=== PATIENT | male | born 1990 | race Two or more races ===

== ENCOUNTER 2016-07-06 01:17 | Emergency (ER) | payer SELFPAY ==
[~2016-07-06] VITALS: Ht 180.3 cm; Wt 111.3 kg
[~2016-07-06 01:17] MED LIST: ATARAX,VISTARIL50 MG PO; CLOZARIL25 MG PO; DESYREL 150 MG150 MG PO; DESYREL100 MG PO; HALDOL2 MG PO; INVEGA SUS234 MG/1.5 IM; INVEGA1.5 MG PO; LATUDA40 MG PO; NAPROSYN500 MG PO; NOHOMEMEDS; PERCOCET 7.51 TABLET PO; QUETIAPINE FUM300 MG PO; SEROQUEL100 MG PO; SEROQUEL200 MG PO; SEROQUEL50 MG PO; ZOLPIDEM TARTRA10 MG PO
[2016-07-06] MEDS ORDERED: COGENTIN0.5 MG PO (01:45)
[2016-07-06 02:22] LABS: EOSINOPHIL (%) 2.6 % (0-5); EOSINOPHIL COUNT 0.2 K/uL (0-0.3); HEMATOCRIT 42.9 % (38.0-50.0); IMMATURE GRANULOCYTE (%) 0.4 % (0.0-0.7); IMMATURE GRANULOCYTE COUNT 0.3 K/uL; LYMPHOCYTE COUNT 1.7 K/uL (1.0-2.8); MCH 27.7 PG (29.0-34.0); MCHC 34.5 G/DL (30.0-36.0); MCV 80.2 FL (86-99); MEAN PLAT.VOLUME 10.3 uM^3 (9.0-12.4); MONOCYTE (%) 9.3 % (3-12); MONOCYTE COUNT 0.7 K/uL (0-0.8); NEUTROPHIL COUNT 4.4 K/uL (1.8-6.4); PLATELET COUNT 231 K/uL (156-360); RBC DIS.WIDTH-CV 13.3 % (11.8-14.6); RBC DIS.WIDTH-SD 38.1 % (39-53); RED BLOOD COUNT 5.35 M/uL (4.00-5.50)
[2016-07-06 02:33] LABS: CHLORIDE 105 mEq/L (99-109); POTASSIUM 4.1 mEq/L (3.7-5.4); SODIUM 138 mEq/L (136-147)
[2016-07-06 02:35] LABS: GLUCOSE 167 mg/dL (70-99)
[2016-07-06 02:36] LABS: ANION GAP 13 MEQ/L (2-14)
[2016-07-06 02:37] LABS: TOTAL BILIRUBIN 0.5 mg/dL (0.0-1.0)
[2016-07-06 02:38] LABS: ALKALINE PHOSPHATASE 85 IU/L (3-129)
[2016-07-06 02:39] LABS: GFR ESTIMATE (CALCULATED) > 59 mL/min/
[2016-07-06 02:40] LABS: UREA NITROGEN (BUN) 9 mg/dL (9-23)
[2016-07-06 02:42] LABS: LIPASE 38 U/L (1.0-51.0)
[2016-07-06 02:44] LABS: TROP-I INTERPRETATION NEGATIVE; TROPONIN-I < 0.01 ng/mL (0.0-0.30)
[2016-07-06 02:48] LABS: D-DIMER ELISA 0.16 mg/L FEU (< 0.57)
[2016-07-06 03:44] LABS: INFLUENZA A VIRAL ANTIGEN NEGATIVE; INFLUENZA B VIRAL ANTIGEN NEGATIVE
[2016-07-06 03:58] LABS: ADD MIUA? NO; BILIRUBIN NEGATIVE; BLOOD NEGATIVE; COLOR YELLOW ((YELLOW)); GLUCOSE (STRIP) NEGATIVE; KETONES NEGATIVE; LEUKOCYTES NEGATIVE; NITRITE NEGATIVE; PROTEIN (STRIP) NEGATIVE; UCUL ADDED? NO; UROBILINOGEN 0.2 MG/DL (0.2-1.0)
[2016-07-06 04:07] LABS: AMPHETAMINE NEGATIVE (500 ng/mL); BARBITURATES NEGATIVE (200 ng/mL); BENZODIAZEPINES NEGATIVE (150 ng/mL); COCAINE NEGATIVE (150 ng/mL); INTERNAL CONTROLS VALID? YES; METHADONE NEGATIVE (200 ng/mL); METHAMPHETAMINE NEGATIVE (500 ng/mL); OPIATES (MORPHINE) NEGATIVE (100 ng/mL); OXYCODONE NEGATIVE (100 ng/mL); PHENCYCLIDINE NEGATIVE (25 ng/mL); PROPOXYPHENE NEGATIVE (300 ng/mL); THC CANNABINOIDS NEGATIVE (50 ng/mL); TRICYCLIC ANTIDEPRESSANTS PRESUMPTIVE POSITIVE (300 ng/mL)
[2016-07-06 04:57] LABS: TROP-I INTERPRETATION NEGATIVE; TROPONIN-I < 0.01 ng/mL (0.0-0.30)
[2016-07-06 06:11] VITALS: BP 125/90
== END 2016-07-06 06:21 | disposition home or self-care (01) ==
LOC: EME 01:17
PROVIDERS: Emergency Medicine
DX: R07.9 Chest pain, unspecified (principal); E86.0 Dehydration; T88.7XXA Unspecified adverse effect of drug or medicament, initial encounter
CPT/HCPCS: 71020; 80053; 81003; 83690; 84484; 85025; 85379; 87502; 93005; 99281; 99285; J7030; S0028

== ENCOUNTER 2016-09-22 02:14 | Emergency (ER) | payer SELFPAY ==
[~2016-09-22] VITALS: Ht 170.2 cm; Wt 112.1 kg
[~2016-09-22 02:14] MED LIST changes: +COGENTIN0.5 MG PO
[2016-09-22 02:17] VITALS: BP 151/103
== END 2016-09-22 02:50 | disposition left against medical advice (07) ==
LOC: EME 02:14
DX: R23.8 Other skin changes (principal); Z53.21 Procedure and treatment not carried out due to patient leaving prior to being seen by health care provider